=== PATIENT | male | born 1980 ===

== ENCOUNTER 2020-08-31 12:42 | Emergency (ER) | payer OTHER ==
[2020-08-31 13:09] LABS: EOS # 0.1 (0.04-0.40); HEMATOCRIT 43.9 % (42.0-52.0); HEMOGLOBIN 14.9 g/dL (13.5-18.0); MEAN CELL VOLUME 87 fl (78-100); MEAN CORPUSCULAR HEMOGLOBIN 30 pg (27-31); MEAN CORPUSCULAR HGB CONC 34 g/dL (33-37); MONO # 0.4 (0.20-0.80); NEU # 3.2 (1.40-6.50); PLATELET COUNT 268 K/mm3 (130-400); RED BLOOD COUNT 5.05 M/mm3 (4.20-5.60); RED CELL DISTRIBUTION WIDTH 12.7 % (11.5-14.5); WHITE BLOOD COUNT 5.8 K/mm3 (4.8-10.8)
[2020-08-31 13:17] LABS: ALBUMIN 4.3 g/dL (3.5-5.0); POTASSIUM 4.1 mmol/L (3.5-5.1); SODIUM 140 mmol/L (136-145)
[2020-08-31 13:18] LABS: CALCIUM 8.9 mg/dL (8.3-10.5)
[2020-08-31 13:19] LABS: GLUCOSE 90 mg/dL (75-110)
[2020-08-31 13:20] LABS: TOTAL PROTEIN 7.3 g/dL (6.4-8.3)
[2020-08-31 13:21] LABS: CARBON DIOXIDE 28 mmol/L (22-29); TOTAL BILIRUBIN 0.3 mg/dL (0.2-1.2)
[2020-08-31 13:25] LABS: AST-SGOT 29 U/L (5-34)
[2020-08-31 13:26] LABS: ALT/SGPT 54 U/L (0-55)
[2020-08-31 13:29] LABS: PARTIAL THROMBOPLASTIN TIME 23.4 SECONDS (21.0-32.0); PROTHROMBIN TIME 9.9 SECONDS (9.0-12.0)
[2020-08-31 13:35] LABS: TROPONIN-I < 0.03 ng/mL (<0.030)
[2020-08-31] MEDS ORDERED: ROPINIROLE HCL1 MG PO (14:03)
[2020-08-31 15:01] VITALS: BP 134/89
== END 2020-08-31 15:03 | disposition home or self-care (01) ==
LOC: ED 12:42
PROVIDERS: Nurse Practitioner
DX: R07.89 Other chest pain (principal)
CPT/HCPCS: J1885

== ENCOUNTER → 2024-01-08 | Outpatient (REF) | payer OTHER ==
[~2024-01-08] MED LIST: ROPINIROLE HCL1 MG PO
[2024-01-13 11:24] LABS: URINE APPEARANCE CLEAR (CLEAR); URINE BILIRUBIN NEGATIVE (NEGATIVE); URINE BLOOD NEGATIVE (NEGATIVE); URINE COLOR YELLOW (YELLOW); URINE GLUCOSE NEGATIVE (NEGATIVE); URINE KETONE NEGATIVE (NEGATIVE); URINE LEUKOCYTE ESTERASE NEGATIVE (NEGATIVE); URINE NITRATE NEGATIVE (NEGATIVE); URINE PROTEIN(semi-quant) NEGATIVE (NEGATIVE)
[2024-01-13 12:21] LABS: URINE WBC 0-1 /hpf (0-3)
== END ==
LOC: LAB 10:00
PROVIDERS: Nurse Practitioner Family
DX: R30.0 Dysuria (principal)

== ENCOUNTER → 2024-05-26 | Outpatient (CLI) | payer OTHER ==
[2024-05-26 09:02] LABS: BASO # 0.01 K/mm3 (0.02-0.10); EOS # 0.05 K/mm3 (0.04-0.40); EOS % 0.9 % (0.0-4.0); HEMATOCRIT 44.5 % (42.0-52.0); HEMOGLOBIN 15.5 g/dL (13.5-18.0); LYMPH# 1.83 K/mm3 (1.50-4.00); MEAN CELL VOLUME 87 fl (78-100); MEAN CORPUSCULAR HEMOGLOBIN 30 pg (27-31); MEAN CORPUSCULAR HGB CONC 35 g/dL (33-37); MONO # 0.43 K/mm3 (0.20-0.80); NEU # 3.11 K/mm3 (1.40-6.50); PLATELET COUNT 260 K/mm3 (130-400); RED BLOOD COUNT 5.13 M/mm3 (4.20-5.60); RED CELL DISTRIBUTION WIDTH 12.4 % (11.5-14.5); WHITE BLOOD COUNT 5.5 K/mm3 (4.8-10.8)
[2024-05-26 09:14] LABS: ALBUMIN 4.2 g/dL (3.5-5.0)
[2024-05-26 09:15] LABS: CALCIUM 9.2 mg/dL (8.3-10.5)
[2024-05-26 09:17] LABS: TOTAL PROTEIN 7.1 g/dL (6.4-8.3)
[2024-05-26 09:18] LABS: TOTAL BILIRUBIN 0.4 mg/dL (0.2-1.2)
== END ==
LOC: LAB 08:50
PROVIDERS: Internal Medicine
DX: Z00.00 Encounter for general adult medical examination without abnormal findings (principal); Z12.5 Encounter for screening for malignant neoplasm of prostate